=== PATIENT | male | born 1990 | race Caucasian/White ===

== ENCOUNTER 2022-02-04 11:40 | Emergency (ER) | payer OTHER ==
[~2022-02-04] VITALS: Ht 170.2 cm; Wt 67.1 kg
[2022-02-04 11:40] VITALS: BP_SYST 138
--- NOTE | 2022-02-04 11:40 | NUR ---
BROUGHT BACK TO BED #7 AND TRIAGED, REPORT GIVEN TO JAZMYN
--- NOTE | 2022-02-04 12:03 | NUR ---
Patient came from work with c/o lower back pain at a 8/10 that started last night. Pt states that he had a fractured L1 and L2 and compressed disc, injury happened a year ago. Pt states using tramadol for pain and ran out of his prescription yesterday. Pt is A & O x 4, ambulatory, and follows simple commands. Pt states having a history of graves disease and uses pantoprazole, flonaze, and tramadol at home. Safety precautions are in place.
--- NOTE | 2022-02-04 12:13 | NUR ---
Dr. Azevedo at bedside with patient.
[2022-02-04] MEDS ORDERED: TRAM50TA2 PO (12:39)
--- NOTE | 2022-02-04 12:45 | NUR ---
pt. cont. to c/o pain 04/19 but denies need for pain med. now stated he wants a prescription only, so he can go back to work today
[2022-02-04 12:55] VITALS: BP_SYST 138
--- NOTE | 2022-02-04 12:55 | NUR ---
Patient given written and verbal discharge instructions and verbalizes understanding. ER Dr. Azevedo discussed with patient the results and treatment provided. Patient in stable condition. ID arm band removed. Rx of tramadol given. Patient educated on pain management and to follow up with PMD. Pain Scale of 7. Opportunity for questions provided and answered. Medication side effect fact sheet provided.
== END 2022-02-04 12:55 | disposition home or self-care (01) ==
LOC: SED 11:40
DX: S32.010A Wedge compression fracture of first lumbar vertebra, initial encounter for closed fracture (principal); M54.50 Low back pain, unspecified; Z76.0 Encounter for issue of repeat prescription; X58.XXXA Exposure to other specified factors, initial encounter; Y93.89 Activity, other specified; Y92.89 Other specified places as the place of occurrence of the external cause; Y99.8 Other external cause status
CPT/HCPCS: 99281; 99283

== ENCOUNTER 2022-12-02 12:08 | Emergency (ER) | payer OTHER ==
[~2022-12-02] VITALS: Ht 170.2 cm; Wt 68.0 kg
[2022-12-02 12:08] VITALS: BP_SYST 147
[~2022-12-02 12:08] MED LIST: TRAM50TA2 PO
--- NOTE | 2022-12-02 14:40 | NUR ---
Dr Harris evaluating patient in the triage room
--- NOTE | 2022-12-02 14:40 | NUR ---
Christopher werner in [facility] - 12/02/22 at 1441 by SDEDLLJermaine SEEN AND EVALUATED BY DR ROBLERO IN TRIAGE ROOM
[2022-12-02] MEDS ORDERED: MECLIZINE HCL 25 MG TABLET (ANITVERT) PO ONE (14:45)
[2022-12-02] MEDS ORDERED: METOCLOPRAMIDE HCL 10 MG/2 ML VIAL IVP ONE (14:45)
[2022-12-02 15:11] LABS: BASOPHILS % (AUTO) 0.5 % (0.0-2.0); EOSINOPHILS # (AUTO) 0.1 K/uL (0.0-0.4); EOSINOPHILS % (AUTO) 2.2 % (0.0-4.0); HEMATOCRIT 41.8 % (36-54); LYMPHOCYTES # (AUTO) 1.4 K/uL (1.0-5.5); LYMPHOCYTES % (AUTO) 21.9 % (20.5-51.5); MEAN CORPUSCULAR HEMOGLOBIN 30 pg (27-31); MEAN CORPUSCULAR HGB CONC 34 % (32-36); MEAN CORPUSCULAR VOLUME 89 fL (79.0-98.0); MONOCYTES # (AUTO) 0.4 K/uL (0.0-1.0); MONOCYTES % (AUTO) 5.5 % (1.7-9.3); NEUTROPHILS # (AUTO) 4.5 K/uL (1.8-7.7); NEUTROPHILS % (AUTO) 69.9 % (40.0-70.0); PLATELET COUNT (AUTO) 286 K/uL (130-430); RED BLOOD CELL COUNT(AUTO) 4.72 MIL/uL (4.2-6.2); RED CELL DISTRIBUTION WIDTH 13.5 % (9.0-15.0); WHITE BLOOD COUNT (AUTO) 6.5 K/uL (4.8-10.8)
[2022-12-02 15:33] LABS: ANION GAP 3 (5-15); CALCIUM 8.9 mg/dL (8.4-11.0); CHLORIDE 102 mmol/L (98-107); CREATININE 0.95 mg/dL (0.55-1.30); GLUCOSE 70 mg/dL (70-99); UREA NITROGEN, BLOOD 12 mg/dL (8-21)
[2022-12-02 15:40] LABS: ALANINE AMINOTRANSFERASE 21 U/L (12-78); ALBUMIN 4.2 g/dL (3.4-4.8); ASPARTATE AMINOTRANSFERASE 21 U/L (10-37); TOTAL BILIRUBIN 0.4 mg/dL (0.0-1.0)
[2022-12-02 15:48] LABS: GFR AFRICAN AMERICAN 117 mL/min (>90)
--- NOTE | 2022-12-02 16:10 | NUR ---
Patient to ER CHAIR for evaluation.
--- NOTE | 2022-12-02 16:12 | NUR ---
PATIENT BROUGHT IN FROM HOME COMPLAINING OF HEADACHE, DIZZINESS, NAUSEA AND VMITTING X 3 DAYS. PATIENT REPORTS HE FEELS DIZZY AND HAVING MIDSTERNAL CHES PAIN RADIATING TO THE BACK. PAIN 4/10
[2022-12-02] MEDS ORDERED: MECL-261 PO (16:42)
--- NOTE | 2022-12-02 17:32 | NUR ---
Patient given verbal discharge instructions and verbalizes understanding,pt left without written instructions. ER MD discussed with patient the results and treatment provided. Patient in stable condition. ID arm band removed. Rx of Meclizine given. Patient educated on pain management and to follow up with PMD. Pain Scale 2/10. Opportunity for questions provided and answered. Medication side effect fact sheet provided.
--- NOTE | 2022-12-02 17:32 | NUR ---
Note reeseluis fernando in [facility] - 12/02/22 at 1737 by [email or web address] Patient given written and verbal discharge instructions and verbalizes understanding. ER discussed with patient the results and treatment provided. Patient in stable condition. ID arm band removed. Rx of Meclizine given. Patient educated on pain management and to follow up with PMD. Pain Scale 2/10. Opportunity for questions provided and answered. Medication side effect fact sheet provided.
[2022-12-02 17:33] VITALS: BP_SYST 147
== END 2022-12-02 17:32 | disposition home or self-care (01) ==
LOC: SED 12:08
DX: R42 Dizziness and giddiness (principal); R51.9 Headache, unspecified; R11.2 Nausea with vomiting, unspecified; Z79.899 Other long term (current) drug therapy
CPT/HCPCS: 99285; 70450; 71045; 80053; 82550; 85025; 84484; 36415; 93005; 76376; J8597; J2765

== ENCOUNTER 2023-02-19 11:20 | Emergency (ER) | payer OTHER ==
[~2023-02-19] VITALS: Ht 170.2 cm; Wt 63.5 kg
[2023-02-19 11:20] VITALS: BP_SYST 142
[~2023-02-19 11:20] MED LIST changes: +MECL-261 PO
[2023-02-19 12:15] LABS: BASOPHILS % (AUTO) 0.9 % (0.0-2.0); EOSINOPHILS # (AUTO) 0.3 K/uL (0.0-0.4); EOSINOPHILS % (AUTO) 5.1 % (0.0-4.0); HEMATOCRIT 40.6 % (36-54); HEMOGLOBIN 13.6 g/dL (14.0-18.0); LYMPHOCYTES % (AUTO) 38.1 % (20.5-51.5); MEAN CORPUSCULAR HEMOGLOBIN 29 pg (27-31); MEAN CORPUSCULAR HGB CONC 33 % (32-36); MEAN CORPUSCULAR VOLUME 86 fL (79.0-98.0); MONOCYTES # (AUTO) 0.4 K/uL (0.0-1.0); NEUTROPHILS # (AUTO) 2.5 K/uL (1.8-7.7); NEUTROPHILS % (AUTO) 47.9 % (40.0-70.0); PLATELET COUNT (AUTO) 307 K/uL (130-430); RED BLOOD CELL COUNT(AUTO) 4.72 MIL/uL (4.2-6.2); RED CELL DISTRIBUTION WIDTH 12.9 % (9.0-15.0); WHITE BLOOD COUNT (AUTO) 5.2 K/uL (4.8-10.8)
[2023-02-19 12:16] LABS: ANION GAP 8 (5-15); CALCIUM 8.7 mg/dL (8.4-11.0); CHLORIDE 103 mmol/L (98-107); CREATININE 0.81 mg/dL (0.55-1.30); GFR AFRICAN AMERICAN 140 mL/min (>90); GLUCOSE 99 mg/dL (70-99); UREA NITROGEN, BLOOD 14 mg/dL (8-21)
[2023-02-19 12:19] LABS: INR 1.1 (0.80-1.20); PROTHROMBIN TIME 10.9 SECS (9.5-12.5)
[2023-02-19 12:30] LABS: ALANINE AMINOTRANSFERASE 23 U/L (12-78); ALBUMIN 3.8 g/dL (3.4-4.8); ASPARTATE AMINOTRANSFERASE 19 U/L (10-37); FREE T4 (FREE THYROXINE) 1.9 ng/dL (0.6-1.6); TOTAL BILIRUBIN 0.6 mg/dL (0.0-1.0)
[2023-02-19 12:50] LABS: BARBITURATE, URINE NEGATIVE (NEG <=200); BENZODIAZEPINE, URINE NEGATIVE (NEG <=150); CANNABINOID, URINE NEGATIVE (NEG <=50); COCAINE, URINE NEGATIVE (NEG <=150); METHAMPHETAMINES SCREEN,URINE NEGATIVE (NEG <=500); OPIATE, URINE NEGATIVE (NEG <=100); PHENCYCLIDINE SCREEN,URINE NEGATIVE (NEG <=25); UR TRICYCLIC ANTIDEPRESSANTS NEGATIVE (NEG <=300); URINE AMPHETAMINE NEGATIVE (NEG <=500); URINE METHADONE NEGATIVE (NEG <=200); URINE OXYCODONE SCREEN NEGATIVE (NEG <=100); URINE PROPOXYPHENE SCREEN NEGATIVE (NEG <=300)
[2023-02-19 13:00] LABS: THYROID STIMULATING HORMONE < 0.01 uIu/mL (0.34-4.82)
[2023-02-19 13:58] VITALS: BP_SYST 142
== END 2023-02-19 13:44 | disposition home or self-care (01) ==
LOC: SED 11:20
DX: E05.90 Thyrotoxicosis, unspecified without thyrotoxic crisis or storm (principal); R00.2 Palpitations; R06.02 Shortness of breath; Z79.899 Other long term (current) drug therapy
CPT/HCPCS: 36415; 71045; 80053; 80307; 82550; 83880; 84439; 84443; 84484; 85025; 85610-TC; 85730-TC; 93005; 99285